=== PATIENT | female | born 1985 ===

== ENCOUNTER 2019-04-01 19:03 | Emergency (ER) | payer SELFPAY ==
[2019-04-01 19:22] VITALS: BP 127/72
--- NOTE | 2019-04-01 19:26 | UC ---
Skin Complaint HPI - HPI Summary HPI Summary: 33-year-old female who had a blackhead mid chest which she has been picking and squeezing over the past few days. Today she noted a hard tender lump underneath the area. She has not been able to squeeze any pus drainage out. She denies any fever or chills. - History of Current Complaint Chief Complaint: UCSkin Time Seen by Provider: 04/01/19 19:25 Stated Complaint: SKIN ISSUE Hx Obtained From: Patient Hx Last Menstrual Period: 03/21/19 Onset/Duration: Gradual Onset Skin Exposure Onset/Duration: Days Ago Onset Severity: Mild Current Severity: Mild Pain Intensity: 5 Location: Other - Mid chest in between both breasts. Character: Swelling, Raised, Painful - Mildly tender on palpation. Aggravating Factor(s): Nothing Alleviating Factor(s): Nothing Associated Signs & Symptoms: Positive: Tenderness - Patient has been picking at the blackened that was there and squeezing it. - Allergy/Home Medications Allergies/Adverse Reactions: Allergies Allergy/AdvReac Type Severity Reaction Status Date / Time No Known Allergies Allergy Verified 04/01/19 19:22 Home Medications: Home Medications [email or web address] ER TAB [Mucinex*] 600 mg PO BID 04/01/19 [History Confirmed 04/01/19 ] PMH/Surg Hx/FS Hx/Imm Hx Previously Healthy: Yes - Surgical History Surgical History: None - Family History Known Family History: Positive: Non-Contributory - Social History Alcohol Use: Occasionally Substance Use Type: None Smoking Status (MU): Never Smoked Tobacco Review of Systems All Other Systems Reviewed And Are Negative: Yes Constitutional: Negative: Fever, Chills Skin: Positive: Other - Raised mildly tender area where a blackhead is located mid chest between both breast. Is Patient Immunocompromised?: No Physical Exam Triage Information Reviewed: Yes Appearance: Well-Appearing, No Pain Distress, Well-Nourished Vital Signs: Initial Vital Signs Temp 99.1 F 04/01/19 19:18 Pulse 62 04/01/19 19:18 Resp 16 04/01/19 19:18 BP 127/72 04/01/19 19:18 Pulse Ox 99 04/01/19 19:18 Vital Signs Reviewed: Yes Eyes: Positive: Conjunctiva Clear Respiratory: Positive: Lungs clear, Normal breath sounds, No respiratory distress, No accessory muscle use Cardiovascular: Positive: RRR, No Murmur, Pulses Normal, Brisk Capillary Refill Musculoskeletal Exam: Normal Neurological Exam: Normal Psychological Exam: Normal Skin: Positive: Other - Patient has a raised mildly tender area mid chest between both breasts measuring approximately 1.0 cm in diameter. There is no redness present. There is a comedone in the middle of the raised area. Not fluctuant. Course/Dx - Course Course Of Treatment: Patient is comfortable here. She is to apply warm moist compresses 4-6 times a day 20 minutes each time. I'm putting her on cephalexin 500 mg by mouth 3 times a day 10 days. She is to follow up at [facility] for any worsening symptoms that if she develops fever, chills or more swelling or redness to the area she is to follow-up in the emergency room. - Diagnoses Provider Diagnosis: [facility] - Sign-Out/Discharge Documenting (check all that apply): Patient Departure All imaging exams completed and their final reports reviewed: No Studies - Discharge Plan Condition: Good Disposition: HOME Prescriptions: Cephalexin CAP* [Keflex 500 CAP*] 500 mg PO TID 10 Days #30 cap Patient Education Materials: Cellulitis (DC) Referrals: No Primary Care Phys,NOPCP [Primary Care Provider] - [facility] [Outside] Additional Instructions: Apply warm moist compresses to the area 4-6 times a day for 20 minutes each time. Follow up at [facility] if no improvement in 4 or 5 days. Go to the emergency room if you develop worsening symptoms, fever or chills, more swollen and red area or pus drainage. - Billing Disposition and Condition Condition: GOOD Disposition: Home
== END 2019-04-01 19:37 | disposition home or self-care (01) ==
LOC: UCCORT 19:03
DX: L70.0 Acne vulgaris (principal)
CPT/HCPCS: 99202; G0463